=== PATIENT | male | born 1990 | race African-American/Black ===

== ENCOUNTER 2020-02-07 17:56 | Emergency (ER) | payer OTHER, SELFPAY ==
[2020-02-07] MEDS ORDERED: Ketorolac Tromethamine 30 MG/ML VIAL ONE (18:40)
== END 2020-02-07 18:46 | disposition home or self-care (01) ==
LOC: BURERS 17:56
DX: S46.912A Strain of unspecified muscle, fascia and tendon at shoulder and upper arm level, left arm, initial encounter (principal); F31.9 Bipolar disorder, unspecified; F20.9 Schizophrenia, unspecified; X50.9XXA Other and unspecified overexertion or strenuous movements or postures, initial encounter
CPT/HCPCS: 96372; 99283; J1885